=== PATIENT | female | born 1960 | race American Indian/Alaskan Native ===

== ENCOUNTER 2019-01-01 06:13 | Day surgery (SDC) | payer MEDICARE ==
[2019-01-01] MEDS ORDERED: WATER FOR IRRIG STERILE IR ONE (06:45)
[2019-01-01] MEDS ORDERED: WATER FOR IRRIG STERILE ONE (06:45)
--- NOTE | 2019-01-01 06:53 | Anesthesia Day of Surgery ---
Anesthesia Day of Surgery - Day of Surgery Patient Examined: Yes Patient H&P Reviewed: Yes Patient is NPO: Yes Beta Blockers: Yes Cardiac Clearance: No Pulmonary Clearance: No Teodoro's Test: N/A
--- NOTE | 2019-01-01 06:57 | Anesthesia Consultation ---
Anesthesia Consult and Med Hx Date of service: 01/01/19 - Airway Anesthetic Teeth Evaluation: Good ROM Head & Neck: Adequate Mental/Hyoid Distance: Adequate Mallampati Class: Class II Intubation Access Assessment: Probably Good - Pulmonary Exam CTA: Yes - Cardiac Exam Anesthetic Concerns: Irregular rhythm - Pre-Operative Health Status ASA Pre-Surgery Classification: ASA3 Proposed Anesthetic Plan: General, MAC - Pulmonary Hx Smoking: No Hx Respiratory Symptoms: Yes (h/o acute resp failure) - Cardiovascular System Hx Hypertension: Yes Hx Cardia Arrhythmia: Yes (Irregular) - Central Nervous System CVA: Yes (h/o obstructive hydrocephalus, h/o aneurysm) - Endocrine Hx Non-Insulin Dependent Diabetes: Yes - Other Systems Hx Alcohol Use: Yes (occasional)
[2019-01-01] MEDS ORDERED: NACL 0.9% 1000 ML 1,000 ML IV SCH (07:00)
[2019-01-01] MEDS ORDERED: DIPRIVAN 10 MG/ML IV ONE ×2 (07:16→07:17)
--- NOTE | 2019-01-01 08:23 | Short Stay Summary ---
Short Stay Documentation Date of service: 01/01/19 Narrative H&P: Ms. Cheng Wang is a 58 yo F who presents for colon cancer screening. - History Past Medical History: stroke Past Surgical History: No surgical history Social history: no significant social history - Allergies and Medications Current Medications: Allergies No Known Allergies Allergy (Verified 12/17/18 13:37) Home Medications Medication Instructions Recorded Confirmed Last Taken Type Atorvastatin 10 mg PO DAILY 12/17/18 01/01/19 12/31/18 History Lisinopril 2.5 mg PO DAILY 12/17/18 01/01/19 12/31/18 History Metoprolol 100 mg PO BID 12/17/18 01/01/19 12/31/18 History metFORMIN 1,000 mg PO BID 12/17/18 01/01/19 12/31/18 History Januvia 50 mg PO DAILY 01/01/19 01/01/19 12/31/18 History Levothyroxine 0.75 mg PO DAILY 01/01/19 01/01/19 12/31/18 History amLODIPine 10 mg PO DAILY 01/01/19 01/01/19 12/31/18 History Active Medications Sodium Chloride (Nacl 0.9% 1000 Ml) 1,000 mls @ 50 mls/hr IV DIRECT KLELEE Last Admin: 01/01/19 07:26 Dose: 50 mls/hr Documented by: - Physical exam General appearance: no acute distress HEENT: Atraumatic, EOMI Lungs: Clear to auscultation Breasts: deferred Heart: Regular rate, Normal S1, Normal S2, No murmurs Gastrointestinal: normal, normoactive bowel sounds Female Genitourinary: deferred Rectal Exam: deferred Neurological: Normal speech - Disposition Condition at discharge: Good Disposition: DC-01 TO HOME OR SELFCARE Short Stay Discharge Plan Follow up with: GEMMA SORIANO MD [Primary Care Provider] - 7 Days
[2019-01-02 07:32] VITALS: BP 149/87
== END 2019-01-01 06:14 | disposition home or self-care (01) ==
LOC: GIO 06:13
PROVIDERS: ATTEND Internal Medicine Gastroenterology
DX: Z12.11 Encounter for screening for malignant neoplasm of colon (principal); K63.5 Polyp of colon; K64.8 Other hemorrhoids; K57.30 Diverticulosis of large intestine without perforation or abscess without bleeding; I10 Essential (primary) hypertension; E11.9 Type 2 diabetes mellitus without complications; E78.00 Pure hypercholesterolemia, unspecified; Z98.890 Other specified postprocedural states; Z90.710 Acquired absence of both cervix and uterus; Z87.891 Personal history of nicotine dependence; Z79.899 Other long term (current) drug therapy; Z79.84 Long term (current) use of oral hypoglycemic drugs; Z86.73 Personal history of transient ischemic attack (TIA), and cerebral infarction without residual deficits; Z72.89 Other problems related to lifestyle
CPT/HCPCS: 45380; 82962; 88305; J2704; J7030